=== PATIENT | female | born 1965 ===

== ENCOUNTER 2018-01-19 13:22 | Emergency (ER) | payer OTHER ==
--- NOTE | 2018-01-19 13:41 | UC ---
Skin Complaint HPI - HPI Summary HPI Summary: Pt presents s/p fall. She tells me that about 30min [employer] she was walking around [place] and caught her foot on an uneven piece of sidewalk - fell forward onto her right knee and then slide on her right face/cheek. No LOC and was witnessed. Able to bear weight. Denies dizziness, headache, vision changes, n/ v. Unsure date of last tetanus - History of Current Complaint Chief Complaint: UCLaceration Time Seen by Provider: 01/19/18 13:40 Stated Complaint: FACE LACERATION Hx Obtained From: Patient Hx Last Menstrual Period: 11/26/17 ?: No Onset/Duration: Sudden Onset Skin Exposure Onset/Duration: Minutes Ago Timing: Constant Onset Severity: Moderate Current Severity: Mild Pain Intensity: 4 Pain Scale Used: 0-10 Numeric - Allergy/Home Medications Allergies/Adverse Reactions: Allergies Allergy/AdvReac Type Severity Reaction Status Date / Time No Known Allergies Allergy Verified 01/19/18 13:37 Home Medications: Home Medications Bp Med 01/19/18 [History] Small [place] Diuretic Pill 0.5 tab PO DAILY 01/19/18 [History Confirmed 01/19/18] Review of Systems Constitutional: Negative Skin: Other - Abrasion to face and right knee Respiratory: Negative Cardiovascular: Negative Neurovascular: Negative Musculoskeletal: Negative Neurological: Negative Psychological: Negative All Other Systems Reviewed And Are Negative: Yes PMH/Surg Hx/FS Hx/Imm Hx Previously Healthy: Yes Cardiovascular History: Hypertension - Surgical History Surgical History: None - Family History Known Family History: Positive: Hypertension - Social History Occupation: Employed Full-time Lives: With Family Alcohol Use: Occasionally Substance Use Type: None Smoking Status (MU): Never Smoked Tobacco Physical Exam - Summary Physical Exam Summary: GENERAL: NAD. WDWN. No pain distress. SKIN: 2.5cm abrasion to right cheek overlying zygomatic region. 1.0cm abrasion to right knee overlying patella. No active bleeding, drainage, or FB. HEENT: Head: At site of abrasion, mild TTP. No zygomatic process or mandible tenderness. Able to open and close mouth without difficulty. No dental fracture. Eyes: PERRLA. EOM intact. Conjunctiva clear without inflammation or discharge. Ears: Hearing grossly normal. TMs intact, no bleeding. NECK: Supple. Nontender. No lymphadenopathy. CHEST: CTAB. No r/r/w. No accessory muscle use. Breathing comfortably and in no distress. CV: RRR. Without m/r/g. Pulses intact. Brisk cap refill. MSK: Right knee with mild edema and tenderness at site of abrasion. FROM. Strength 5/5. No patella apprehension. Negative Emily, A/P drawer, Lea, and varus/valgus stress. NEURO: A&Ox3. CN II XII grossly intact. Normal speech. No facial drooping. PSYCH: Age appropriate behavior. Triage Information Reviewed: Yes Vital Signs: Initial Vital Signs Temp 98.5 F 01/19/18 13:24 Pulse 84 01/19/18 13:24 Resp 16 01/19/18 13:24 BP 168/91 01/19/18 13:24 Pulse Ox 98 01/19/18 13:24 Course/Dx - Course Course Of Treatment: Tdap updated today. 400mg ibuprofen given in clinic. Abrasions cleaned with NS. Triple antibiotic ointment and band-aids applied. Advised to take ibuprofen q6-8 prn pain. - Diagnoses Provider Diagnoses: Right face abrasion. Right knee abrasion. Fall Discharge - Sign-Out/Discharge Documenting (check all that apply): Discharge - Discharge Plan Condition: Stable Disposition: HOME Patient Education Materials: Abrasion (ED) Referrals: No Primary Care Phys,NOPCP [Primary Care Provider] - Additional Instructions: If you develop a fever, shortness of breath, chest pain, new or worsening symptoms - please call your PCP or go to the ED. Your blood pressure was high at todays visit. Please see your primary provider within 4 weeks for recheck and re-evaluation. 1) May take 400-600mg ibuprofen every 6-8 hours as needed for pain 2) Change band-aids daily until well healed 3) Continue icing the areas to decrease pain and swelling - Billing Disposition and Condition Condition: STABLE Disposition: HOME
[2018-01-19] MEDS ORDERED: Ibuprofen TAB* 400 MG PO ONE (13:47)
[2018-01-19] MEDS ORDERED: Tetan/Diph/Pertus SYR(Tdap)* 0.5 ML SYR(BOOSTRIX) use SYR IM ONE (13:47)
[2018-01-19] MEDS ORDERED: Ibuprofen TAB* 600 MG PO ONE (14:03)
== END 2018-01-19 14:14 | disposition home or self-care (01) ==
LOC: UCEAST 13:22
DX: S00.81XA Abrasion of other part of head, initial encounter (principal); S80.211A Abrasion, right knee, initial encounter; W01.0XXA Fall on same level from slipping, tripping and stumbling without subsequent striking against object, initial encounter; Y93.01 Activity, walking, marching and hiking; Y92.480 Sidewalk as the place of occurrence of the external cause; Z23 Encounter for immunization; I10 Essential (primary) hypertension
CPT/HCPCS: 90715; 99202; A9270-GY; G0463